=== PATIENT | female | born 1990 | race Caucasian/White ===

== ENCOUNTER 2016-08-09 09:26 | Emergency (ER) | payer SELFPAY ==
[~2016-08-09] VITALS: Ht 175.3 cm; Wt 99.8 kg
--- NOTE | 2016-08-09 10:11 | PHYS DOC ---
Past Medical History Past Medical History: No Pertinent History Past Surgical History: Cholecystectomy, , Tonsillectomy Additional Information: 06/24 ppd Alcohol Use: None Drug Use: None Adult General Chief Complaint Chief Complaint: VAGINAL PROBLEM HPI HPI Patient is a 26 year old female who presents with pelvic cramping for 2 days. She had light vaginal bleeding last night that has now stopped. This morning she passed some tissue from her vagina. She has also had dysuria with urinary frequency and urgency. She denies vaginal discharge or hematuria. She has not had nausea, vomiting, diarrhea, constipation, or fevers. Her LMP was 06/24/16. She had the Depo shot last month. This was her first time getting the shot. She previously had the ParaGard IUD. She is sexually active and does not use condoms. She [facility] her [facility]necological care from [facility]. She does not have a PCP. Review of Systems Review of Systems Constitutional: Denies fever or chills. [] GI: Denies abdominal pain, nausea, vomiting, bloody stools or diarrhea. [] : Denies hematuria or vaginal discharge. Reports pelvic pain, vaginal bleeding , dysuria, urinary frequency and urgency. Musculoskeletal: Denies back pain or joint pain. [] Integument: Denies rash or skin lesions. [] Neurologic: Denies headache, focal weakness or sensory changes. [] All systems reviewed and negative unless otherwise stated in the HPI. Allergies Allergies Allergies Coded Allergies Type Severity Reaction Last Updated Verified No Known Drug Allergies 07/04/16 No Physical Exam Physical Exam Constitutional: Well developed, well nourished, no acute distress, non-toxic appearance. [] HENT: Normocephalic, atraumatic, oropharynx moist. [] Eyes: PERRLA, EOMI, conjunctiva normal, no discharge. [] Neck: Normal range of motion, no tenderness, supple, no stridor. [] Cardiovascular: Heart rate regular rhythm, no murmur. [] Lungs & Thorax: Bilateral breath sounds clear to auscultation without wheezes, rales, or rhonchi. [] Abdomen: Bowel sounds normal, soft, no tenderness at McBurney's point, no masses , no pulsatile masses. There is diffuse tenderness below the pelvic brim. Female : sterilization technician present during exam. Normal external genitalia. There is no active bleeding or blood in the vagina. There is slight white discharge in the vagina. There is no cervicitis or CMT. There is diffuse tenderness on bimanual examination. Skin: Warm, dry, no erythema, no rash. [] Neurologic: Alert and oriented X 3, normal motor function, normal sensory function, no focal deficits noted. [] Psychologic: Affect normal, judgement normal, mood normal. [] Current Patient Data Vital Signs Vital Signs Date Time Temp Pulse Resp B/P Pulse Ox O2 Delivery O2 Flow Rate FiO2 08/09/16 09:35 98.7 88 16 126/68 99 Room Air 98.7 Lab Values Laboratory Tests Test 08/09/16 10:00 Urine Collection Type Unknown Urine Color Yellow Urine Clarity Clear Urine pH 6.5 Urine Specific [place] 1.020 Urine Protein Negativemg/dL (NEG-TRACE) Urine Glucose (UA) Negativemg/dL (NEG) Urine Ketones (Stick) Negativemg/dL (NEG) Urine Blood Moderate (NEG) Urine Nitrite Negative (NEG) Urine Bilirubin Negative (NEG) Urine Urobilinogen Dipstick 0.2mg/dL (0.2 mg/dL) Urine Leukocyte Esterase Negative (NEG) Urine RBC 3-5/HPF (0-2) Urine WBC 0/HPF (0-4) Urine Squamous Epithelial Cells Few/LPF Urine Bacteria 0/HPF (0-FEW) Urine Mucus Marked/LPF Microbiology 08/09/16 Wet Prep - Final, Complete WET PREP Final YEAST NONE SEEN TRICHOMONAS NONE SEEN CLUE CELLS NONE SEEN ALTERED LOYD ALTERED LOYD PRESENT SUGGESTIVE OF BACTERIAL VAGINOSIS WBCS FEW SQUAMOUS EPS FEW Microbiology 08/09/16 Wet Prep - Final, Complete EKG EKG [] Radiology/Procedures Radiology/Procedures [] Course & Med Decision Making Course & Med Decision Making Pertinent Labs and Imaging studies reviewed. (See chart for details) [] Dragon Disclaimer Dragon Disclaimer This electronic medical record was generated, in whole or in part, using a voice recognition dictation system. Departure Departure Impression: Primary Impression: Bacterial vaginosis Disposition: 01 HOME, SELF-CARE Condition: STABLE Referrals: ALY RUSHING Jr, MD Patient Instructions: Bacterial Vaginosis, [id number] Additional Instructions: Your urine does not show an infection. Your vaginal swab shows that you have bacterial vaginosis. This is not an STD. You were tested for gonorrhea and chlamydia today. We will not have these results for 2-3 days. You will receive a phone call if your result is positive. Please complete all of the prescribed antibiotics. Please follow up with the LAYOUT TECHNICIAN doctor listed below, or the LAYOUT TECHNICIAN of your choice if your symptoms continue. Return to the emergency department if you have any new or concerning symptoms. Scripts Metronidazole (Flagyl)500 Mg Tablet1 Tab PO BID #14 TAB Prov:RACHANA SCOTT 08/09/16 RACHANA SCOTT Aug 09, 2016 10:10
[2016-08-09 10:28] LABS: BILIRUBIN,URINE NEGATIVE (NEG); GLUCOSE,URINE NEGATIVE (NEG); NITRITE,URINE NEGATIVE (NEG); PH,URINE 6.5; PROTEIN,URINE NEGATIVE (NEG-TRACE); UROBILINOGEN,URINE 0.2 mg/dL (0.2 mg/dL)
[2016-08-09 10:47] LABS: BACTERIA,URINE 0 /HPF (0-FEW); SQUAMOUS EPITHELIAL CELL,UR FEW /LPF; WBC,URINE 0 /HPF (0-4)
[2016-08-09] MEDS ORDERED: METR500T PO (11:04)
[2016-08-09 11:08] VITALS: BP 113/74
== END 2016-08-09 11:09 | disposition home or self-care (01) ==
LOC: ER 09:26
DX: N76.0 Acute vaginitis (principal); Z90.49 Acquired absence of other specified parts of digestive tract
CPT/HCPCS: 81001; 99284; Q0111; 87491; 87591

== ENCOUNTER 2017-06-03 07:41 | Emergency (ER) | payer OTHER ==
[~2017-06-03] VITALS: Ht 175.3 cm; Wt 99.8 kg
[~2017-06-03 07:41] MED LIST: METR500T PO
[2017-06-03 08:00] VITALS: BP 113/73
[2017-06-03] MEDS ORDERED: BENZ100C PO (08:20)
[2017-06-03] MEDS ORDERED: PROAIR RESPICL90 MCG IH (08:20)
[2017-06-03] MEDS ORDERED: METH4TAB2 PO (08:20)
[2017-06-03] MEDS ORDERED: AMOX1TAB61 PO (08:22)
--- NOTE | 2017-06-03 08:23 | PHYS DOC ---
Past Medical History Past Medical History: No Pertinent History Past Surgical History: Cholecystectomy, , Tonsillectomy Additional Information: 06/24 ppd Alcohol Use: None Drug Use: None Adult General Chief Complaint Chief Complaint: Congestion HPI HPI Patient is a 27 year old female who presents today complaining of nasal congestion and a cough for 3 days. 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 Patient states she is currently on Topamax. She states the current nasal congestion is making her headaches worse. Patient denies this being the worst headache in her life. Denies any fever. She is in the ED with the son with some symptoms. She is a smoker she was encouraged to consider smoking cessation. Review of Systems Review of Systems Constitutional: Denies fever or chills [] Eyes: Denies change in visual acuity, redness, or eye pain [] HENT: Reports nasal congestion denies sore throat [] Respiratory: Reports cough, denies shortness of breath Cardiovascular: No additional information not addressed in HPI [] GI: Denies abdominal pain, nausea, vomiting, bloody stools or diarrhea [] : Denies dysuria or hematuria [] Musculoskeletal: Denies back pain or joint pain [] Integument: Denies rash or skin lesions [] Neurologic: Reports headache, denies focal weakness or sensory changes [] Endocrine: Denies polyuria or polydipsia [] All other systems were reviewed and found to be within normal limits, except as documented in this note. Allergies Allergies Allergies Coded Allergies Type Severity Reaction Last Updated Verified No Known Drug Allergies 07/04/16 No Physical Exam Physical Exam Constitutional: Well developed, well nourished, no acute distress, non-toxic appearance. [] HENT: Normocephalic, atraumatic, bilateral external ears normal, oropharynx moist, no oral exudates, nose normal. [] Eyes: PERRLA, EOMI, conjunctiva normal, no discharge. [] Neck: Normal range of motion, no tenderness, supple, no stridor. [] Cardiovascular:Heart rate regular rhythm, no murmur [] Lungs & Thorax: Bilateral breath sounds clear to auscultation [] Abdomen: Bowel sounds normal, soft, no tenderness, no masses, no pulsatile masses. [] Skin: Warm, dry, no erythema, no rash. [] Back: No tenderness, no CVA tenderness. [] Extremities: No tenderness, no cyanosis, no clubbing, ROM intact, no edema. [] Neurologic: Alert and oriented X 3, normal motor function, normal sensory function, no focal deficits noted. Cranial nerves II through XII intact Psychologic: Affect normal, judgement normal, mood normal. [] Current Patient Data Vital Signs Vital Signs Date Time Temp Pulse Resp B/P (MAP) Pulse Ox O2 Delivery O2 Flow Rate FiO2 06/03/17 08:00 98.2 101 24 99 Room Air 98.2 EKG EKG [] Radiology/Procedures Radiology/Procedures [] Course & Med Decision Making Course & Med Decision Making Pertinent Labs and Imaging studies reviewed. (See chart for details) This is a 27-year-old female patient presented to the ED today with nasal congestion and a cough that began 3 days ago. She has history of brain swelling which she states her neurologist has been following up with. She states this symptoms are making her headaches worse. Her symptoms are consistent with upper respiratory infection. Gave her prescription for Medrol Dosepak, albuterol inhaler, Tessalon Perles. She requested antibiotics. Give prescription for Augmentin prophylaxis. Instructed to follow-up with her PCP as well as neurologist. Ibuprofen also recommended. [id number] decongestants also recommended. Dragon Disclaimer Dragon Disclaimer This electronic medical record was generated, in whole or in part, using a voice recognition dictation system. Departure Departure Impression: Primary Impression: Upper respiratory infection Additional Impressions: Cough Headache Smoking addiction Disposition: 01 HOME, SELF-CARE Condition: STABLE Referrals: NO PCP (PCP) follow up with your doctor in 1-2 weeks Patient Instructions: Cough, Adult, General Headache Without Cause, Easy-to- Read, Smoking Cessation, Upper Respiratory Infection, Adult, [id number] Additional Instructions: You were seen with symptoms consistent of an upper respiratory infection. Continue taking [id number] decongestants. Complete the antibiotics prescribed as well as prednisone. Follow-up with your own doctor in the next 1- 2 weeks. Please consider smoking cessation. Scripts Amoxicillin/Potassium Clav (AUGMENTIN 875-125 TABLET) 1 Each Tablet 1 TAB PO BID, #20 TAB Prov: DIETERAMARK CONSTRUCTION SUPERVISOR/CARPENTER 06/03/17 Methylprednisolone (MEDROL) 4 Mg Tab.ds.pk 1 PKG PO UD, #1 PKG Prov: MARK MAYER CONSTRUCTION SUPERVISOR/CARPENTER 06/03/17 Benzonatate (TESSALON PERLE) 100 Mg Capsule 1 CAP PO TID, #30 CAP Prov: MARK MAYER CONSTRUCTION SUPERVISOR/CARPENTER 06/03/17 Albuterol Sulfate (Proair Respiclick) 90 Mcg Aer.pow.ba 1 PUFF IH PRN Q6HRS Y for SHORTNESS OF BREATH, #1 INHALER Prov: MARK MAYER CONSTRUCTION SUPERVISOR/CARPENTER 06/03/17 Methylprednisolone (MEDROL) 4 Mg Tab.ds.pk 1 PKG PO UD, #1 PKG Prov: MARK MAYER CONSTRUCTION SUPERVISOR/CARPENTER 06/03/17 Problem Qualifiers Primary Impression: Upper respiratory infection URI type: unspecified URI Qualified Codes: J06.9 - Acute upper respiratory infection, unspecified Additional Impressions: Headache Headache type: unspecified Headache chronicity pattern: acute headache Intractability: not intractable Qualified Codes: R51 - Headache MARK MAYER JEREMY Jun 03, 2017 08:23
== END 2017-06-03 08:25 | disposition home or self-care (01) ==
LOC: ER 07:41
DX: J06.9 Acute upper respiratory infection, unspecified (principal); R51 Headache; F17.200 Nicotine dependence, unspecified, uncomplicated; Z90.49 Acquired absence of other specified parts of digestive tract
CPT/HCPCS: 99283